=== PATIENT | male | born 2005 | race Caucasian/White ===

== ENCOUNTER 2024-10-26 18:28 | Emergency (ER) | payer BC ==
[2024-10-26] MEDS ORDERED: Bacitracin 1 PK ONE (18:41)
== END 2024-10-26 18:57 | disposition home or self-care (01) ==
LOC: CSHERS 18:28
DX: S61.212D Laceration without foreign body of right middle finger without damage to nail, subsequent encounter (principal); Z48.02 Encounter for removal of sutures; W26.8XXD Contact with other sharp object(s), not elsewhere classified, subsequent encounter